=== PATIENT | male | born 1955 | race African-American/Black ===

== ENCOUNTER 2018-11-11 14:07 | Emergency (ER) | payer SELFPAY ==
[~2018-11-11] VITALS: Ht 172.7 cm; Wt 68.0 kg
[2018-11-11 14:15] VITALS: BP 119/62
--- NOTE | 2018-11-11 14:24 | PHYS DOC ---
Adult General Chief Complaint Chief Complaint: ANIMAL BITE HPI HPI Patient is a 63 year old male who presents with dog bite to the left lower extremity, patient states he went to visit his friend and neighbor's dog bit him. (ROMEO SCHULTZ APRN) Review of Systems Review of Systems Constitutional: Denies fever or chills [] Musculoskeletal: Denies back pain or joint pain [] Integument: Reports dog bite to the left lower extremity Neurologic: Denies headache, focal weakness or sensory changes [] All other systems were reviewed and found to be within normal limits, except as documented in this note. (ROMEO SCHULTZ APRN) Current Medications Current Medications Current Medications Medications (Trade) Dose Ordered Sig/Lety Start Time Stop Time Status Last Admin Dose Admin Acetaminophen/ Hydrocodone Bitart (Lortab 5/325) 2 tab 1X ONCE 11/11/18 15:00 11/11/18 15:01 DC 11/11/18 14:48 2 TAB Lidocaine HCl (Lidocaine 1% 20ml Vial) 20 ml 1X ONCE 11/11/18 15:00 11/11/18 15:01 DC 11/11/18 14:48 20 ML (SILVANO MONET MD) Allergies Allergies Allergies Coded Allergies Type Severity Reaction Last Updated Verified No Known Drug Allergies 11/11/18 No (SILVANO MONET MD) Physical Exam Physical Exam Constitutional: Well developed, well nourished, no acute distress, non-toxic appearance. [] Skin: Left posterior lower extremity just below the calf with a gapping dog bit approx. 6 cm long. There is no obvious tendon involvement. Full range of motion to the left lower extremity. +2 left pedal pulse. Back: No tenderness, no CVA tenderness. [] Extremities: No tenderness, no cyanosis, no clubbing, ROM intact, no edema. [] Neurologic: Alert and oriented X 3, normal motor function, normal sensory function, no focal deficits noted. [] Psychologic: Affect normal, judgement normal, mood normal. [] (ROMEO SCHULTZ APRN) Current Patient Data Vital Signs Vital Signs Date Time Temp Pulse Resp B/P (MAP) Pulse Ox O2 Delivery O2 Flow Rate FiO2 11/11/18 14:48 20 96 Room Air 11/11/18 14:15 98.0 68 119/62 (81) 98.0 (SILVANO MONET MD) EKG EKG [] (ROMEO SCHULTZ APRN) Radiology/Procedures Radiology/Procedures Laceration/Wound Repair Wound Location: Left leg laceration from dog bite Wound's Depth, Shape: Horizontal Wound Length (cm): Approximately 6 cm Wound Explored: clean Irrigated w/ Saline (ccs): 500 Betadine Prep?: Yes Anesthesia: 1% of lidocaine Volume Anesthetic (ccs): Approximately 12 mL Wound Repaired With: Inner wound was applied with 3 interrupted sutures using 3. 0 Vicryl, exterior wound was repaired with 10 interrupted sutures using 4. 0 Vicryl. Progress : Wound was covered with nonstick dressing (ROMEO SCHULTZ APRN) Course & Med Decision Making Course & Med Decision Making Pertinent Labs and Imaging studies reviewed. (See chart for details) This is a 63-year-old male patient presenting to the ED today with a dog bite to the left lower extremity. Unfortunately this is a gaping open dog bite that will need stitches. Tetanus up-to-date. Wound was repaired by me as noted in procedures. Wound was covered with nonstick dressing. Discharged on Augmentin. (ROMEO SCHULTZ APRN) Course & Med Decision Making Staff Physician Addendum: I was working in the ER during the course of this patient's visit. I was available for consultation as needed, but I was not directly involved in the care of this patient. (SILVANO MONET MD) Dragon Disclaimer Dragon Disclaimer This electronic medical record was generated, in whole or in part, using a voice recognition dictation system. (ROMEO SCHULTZ APRN) Departure Departure Impression: Primary Impression: Dog bite of left lower leg Disposition: 01 HOME, SELF-CARE Condition: STABLE Patient Instructions: Animal Bite, [id number] Additional Instructions: You have dog bite to the left leg, keep the area clean and dry. Apply Neosporin to the area. We closed the bite area with dissolvable sutures. Ensure you complete the prescribed antibiotics. Please monitor the area for any worsening condition including but not limited to increased redness, warmth to the area, yellow drainage from the area and return to the ED if they occur or see your own doctor. Scripts Amoxicillin/Potassium Clav (AUGMENTIN 875-125 TABLET) 1 Each Tablet 1 TAB PO BID, #20 TAB Prov: ROMEO SCHULTZ APRN 11/11/18 Problem Qualifiers Primary Impression: Dog bite of left lower leg Encounter type: initial encounter Qualified Codes: S81.852A - Open bite, left lower leg, initial encounter; W54.0XXA - Bitten by dog, initial encounter [employer] SCHULTZ [employer] Nov 11, 2018 14:24 SILVANO MONET MD Nov 18, 2018 20:19
[2018-11-11] MEDS ORDERED: LIDOCAINE 1% Multi-Dose 20 ML VIAL. INJ ONE (15:00)
[2018-11-11] MEDS ORDERED: HYDROcodone/APAP 5/325MG 1 TAB TABLET PO ONE (15:00)
[2018-11-11] MEDS ORDERED: AMOX1TAB61 PO (15:31)
== END 2018-11-11 16:11 | disposition home or self-care (01) ==
LOC: ER 14:07
DX: S81.852A Open bite, left lower leg, initial encounter (principal); W54.0XXA Bitten by dog, initial encounter; Y93.89 Activity, other specified; Y92.89 Other specified places as the place of occurrence of the external cause; Y99.8 Other external cause status
CPT/HCPCS: 12002; 99283